=== PATIENT | male | born 1990 | race Caucasian/White ===

== ENCOUNTER → 2017-03-06 | Outpatient (CLI) | payer MEDICAID ==
[~2017-03-06] MED LIST: CIPRO 500MG TA500 MG PO; CLARITIN 10MG T10 MG PO; FLEXERIL10 MG PO; IBU-8800 MG PO; LODINE200 MG PO; LORTAB 5/500 501 TAB PO; MEDROL 4MG. DOSE4 MG PO; SINGULAIR10 MG PO; TRAMADOL 50MG T50 MG PO; TYLENOL W/CODEI1 TA2 PO; VOLTAREN75 MG PO
[2017-03-06 15:38] LABS: AMPHETAMINES/METAMPHETAMINES NEGATIVE ng/mL (<1000)
[2017-03-11 10:39] LABS: Opiates Negative (Cutoff=100)
== END ==
LOC: LAB 15:13
PROVIDERS: Emergency Medicine
DX: Z79.899 Other long term (current) drug therapy (principal)